=== PATIENT | male | born 1950 | race Caucasian/White ===

== ENCOUNTER 2016-12-12 13:07 | Day surgery (SDC) | payer OTHER ==
[~2016-12-12] VITALS: Ht 182.9 cm; Wt 113.4 kg
[~2016-12-12 13:07] MED LIST: CLOB15CR3 TOP; SILD20TA PO; SIMV20TA4 PO; Sodium Chloride LOK Flush 10 mL Syringe IV PRN; fentaNYL-PF 50 mCg/mL 2 mL Inj IVPUSH PRN
[2016-12-12] MEDS: 0.9% Sodium Chloride 1,000 ML IV SCH ×2 (13:45→14:15)
[2016-12-12 13:50] VITALS: BP 149/90; PULSE 66; RESP 16; O2SAT 96
[2016-12-12 14:44] VITALS: BP 148/94; PULSE 67; RESP 16; O2SAT 94
[2016-12-12 14:56] VITALS: BP 133/82; PULSE 61; RESP 16; O2SAT 93
--- NOTE | 2016-12-13 00:18 | ENDO ---
[address] [address] ENDOSCOPY PROCEDURE PATIENT: MURALI BOYLE : 1950 MR#: [id number] ADMIT: 12/12/2016 JOB ID: [id number] DATE OF PROCEDURE: 12/12/2016 PRIMARY CARE PROVIDER: Sangeeta Nair MD. PROCEDURE: Colonoscopy with cold forceps polypectomy. INDICATIONS: A 66-year-old male who reports for colon cancer screening. EQUIPMENT: [id number]. SEDATION: No sedation. BOWEL PREPARATION: Fair, adequate exam. PROCEDURE INFORMATION: After the risks and benefits were explained, written and verbal informed consent was obtained. The patient was brought into the endoscopy suite and placed into the left lateral decubitus position. Sedation was achieved using the above-stated medications with the addition of oxygen via nasal cannula. A digital rectal examination was accomplished and no significant pathology appreciated, apart from some mild internal and external nonbleeding, nonthrombosed hemorrhoids. The scope was introduced into the rectum and advanced under direct visualization to the cecum as identified by the appendiceal orifice and ileocecal valve. The scope was slowly withdrawn to carefully examine the mucosa for any defects or lesions. Retroflexed views were accomplished in the rectum. The colon was decompressed. The scope was removed from the patient who tolerated the procedure well. FINDINGS: No significant inflammation or mass lesions throughout. There was a diminutive polyp in the descending colon removed with cold forceps. There was some mild diverticulosis in the left colon. Retroflexed views were rather unremarkable. ENDOSCOPIC DIAGNOSES: 1. Colon polyp. 2. Diverticulosis. 3. Mild hemorrhoids. RECOMMENDATIONS: 1. Await histopathology. 2. If this polyp is returned adenomatous, repeat colonoscopy in five years. If this is hyperplastic polyp, repeat colonoscopy 10 years.
--- NOTE | 2016-12-14 10:16 | PATH ---
SURGICAL PATHOLOGY Attending Physician:Juventino Navarrete CASE STATUS: Signed Out PATIENT NAME: MURALI BOYLE PID: [id number] : 1950 DATE COLLECTED:12/12/2016 00:00 SPECIMEN: Colon, Biopsy CLINICAL HISTORY: DESCENDING POLYP FINAL DIAGNOSIS: Descending Colon Polyp: Tubular adenoma. ICD10: D12.6 GROSS DESCRIPTION: The specimen is received in one formalin filled container labeled with the patient's name, sublabeled "descending polyp" and consists of a 0.3 x 0.3 x 0.3 CM portion of tissue which is entirely submitted in one cassette. 12/13/2016 [facility] ICD-9 CODES: CPT CODES: 1: 71404 Electronically Signed Out Varghese Doll MD [facility] Pathology [facility] [address], [place] [address] Technical component performed at [facility], [facility] [address], [place], [address]
== END 2016-12-12 23:59 | disposition home or self-care (01) ==
LOC: END 13:07
PROVIDERS: ATTEND Internal Medicine Gastroenterology
DX: Z12.11 Encounter for screening for malignant neoplasm of colon (principal); D12.4 Benign neoplasm of descending colon; K57.30 Diverticulosis of large intestine without perforation or abscess without bleeding; K64.8 Other hemorrhoids; Z79.899 Other long term (current) drug therapy